=== PATIENT | male | born 1985 | race Caucasian/White ===

== ENCOUNTER 2019-01-04 21:39 | Emergency (ER) | payer BC, MEDICAID, OTHER ==
[~2019-01-04] VITALS: Ht 185.4 cm; Wt 102.0 kg
--- NOTE | 2019-01-04 22:33 | NUR ---
PA to NS to request pt be placed on simple mask at 7. So done.
[2019-01-04] MEDS ORDERED: SUMAtriptan 5 mg Nasal Spray NS ONE (22:35)
[2019-01-04] MEDS ORDERED: SUMAtriptan succ. 6 MG/0.5ml vial SQ ONE (22:40)
[2019-01-04] MEDS ORDERED: proCHLORperazine 10 MG/2 ml inj IV ONE (23:00)
[2019-01-04] MEDS ORDERED: diphenhydrAMINE 50 mg/ml inj IV ONE (23:00)
[2019-01-04] MEDS ORDERED: normal saline 1000ML IV soln IVB ONE (23:00)
--- NOTE | 2019-01-04 23:08 | NUR ---
relieving RN for break, pt is resting quietly in the dark, c/o headache "it is worse" 04/07,
[2019-01-04] MEDS ORDERED: ketorolac tromethamine 15mg/ml inj. IV ONE (23:25)
[2019-01-04 23:48] LABS: URINE AMPHETAMINE SCREEN NEGATIVE (Neg); URINE BARBITUATE SCREEN NEGATIVE (Neg); URINE BENZODIAZEPINES SCREEN NEGATIVE (Neg); URINE CANNABINOID SCREEN NEGATIVE (Neg); URINE COCAINE SCREEN NEGATIVE (Neg); URINE METHADONE SCREEN NEGATIVE (Neg); URINE OPIATE SCREEN NEGATIVE (Neg); URINE PHENCYCLIDINE SCREEN NEGATIVE (Neg)
[2019-01-05 00:42] VITALS: BP 127/63
== END 2019-01-05 00:44 | disposition home or self-care (01) ==
LOC: ER 21:40
DX: G43.909 Migraine, unspecified, not intractable, without status migrainosus (principal)
CPT/HCPCS: 80305; 96372; 96374; 96375; 99283; J0780; J1200; J1885; J7030; J3030

== ENCOUNTER 2024-11-23 12:36 | Emergency (ER) | payer BC ==
[~2024-11-23] VITALS: Ht 185.4 cm; Wt 105.5 kg
[2024-11-23 12:47] VITALS: TEMP 97.2
--- NOTE | 2024-11-23 12:56 | ELECTROCARDIOGRAPH REPORT ---
[facility] Test Date: 2024-11-23 Test Time: 12:55:06 Pat Name: ALEXANDER JO Department: EMERGENCY ROOM Room: Gender: M Field Secretary: CHAPARRO : 1985 Requested By: REGIS PIERSON Order Number: [id number] Reading MD: Dr. Jasper Zambrano Measurements Intervals [place] Rate: 94 P: 65 [place]: 154 QRS: 59 QRSD: 101 T: 23 QT: 358 QTc: 448 Interpretive Statements Sinus rhythm Multiple ventricular premature complexes RSR' in V1 or V2, right VCD or RVH Baseline wander in lead(s) I,II,aVR,V3 Electronically Signed On 11-23-2024 19:01:[address] Jasper Zambrano Please click the below link to view image of tracing.
[2024-11-23 13:12] LABS: BASOPHILS # (AUTO) 0.1 X10'3 (0-0.2); BASOPHILS % (AUTO) 0.6 % (0-1); EOSINOPHILS # (AUTO) 0.1 X10'3 (0-0.9); EOSINOPHILS % (AUTO) 1.5 % (0-6); HEMOGLOBIN 15.6 g/dl (14.0-17.9); LYMPHOCYTES # (AUTO) 1.8 X10'3 (1.1-4.8); LYMPHOCYTES % (AUTO) 23.5 % (21-51); MEAN CORPUSCULAR HEMOGLOBIN 26.5 PG (27.0-31.0); MEAN CORPUSCULAR HGB CONC 33.8 g/dL (33.0-36.5); MEAN CORPUSCULAR VOLUME 78.4 FL (78-98); MEAN PLATELET VOLUME 7.3 FL (7.4-10.4); MONOCYTES # (AUTO) 0.5 X10'3 (0-0.9); NEUTROPHILS # (AUTO) 5.3 X10'3 (1.8-7.7); NEUTROPHILS % (AUTO) 68.4 % (42-75); PLATELET COUNT 242 X10'3 (140-440); RED BLOOD COUNT 5.86 X10'6 (4.70-6.10); RED CELL DISTRIBUTION WIDTH 13.6 % (11.5-14.5); WHITE BLOOD COUNT 7.7 X10'3 (4.5-11.0)
--- NOTE | 2024-11-23 13:18 | RADIOLOGY REPORT ---
CHEST RADIOGRAPH Indication: CP Technique: Single frontal view of the chest was obtained Comparison: None FINDINGS: Lines and Tubes: None Lungs: No focal consolidation. Pleura: No effusion. No pneumothorax. Cardiomediastinal contours: Unremarkable Bones: No acute osseous abnormality. IMPRESSION: No acute cardiopulmonary disease.
[2024-11-23 13:26] LABS: ALANINE AMINOTRANSFERASE 47 U/L (12-78); ALBUMIN 4.5 G/DL (3.4-5.0); ALBUMIN/GLOBULIN RATIO 1.4 (1.1-1.5); ALKALINE PHOSPHATASE 77 IU/L (46-116); ANION GAP 11 (8-16); ASPARTATE AMINO TRANSFERASE 22 U/L (10-37); BILIRUBIN,TOTAL 0.5 MG/DL (0.1-1.0); BLOOD UREA NITROGEN 12 MG/DL (7-18); BUN/CREATININE RATIO 12.6 (10.0-20.0); CALCIUM 9.2 MG/DL (8.5-10.1); CHLORIDE 101 MMOL/L (99-107); CREATININE 0.95 MG/DL (0.60-1.10); GLUCOSE 108 MG/DL (70-104); SODIUM 135 MMOL/L (135-145); TOTAL CARBON DIOXIDE 23.5 MMOL/L (24-32); TOTAL PROTEIN 7.7 G/DL (6.4-8.2); eCRCL 120 ML/MIN; eGFR 89 ML/MIN
[2024-11-23 13:35] LABS: PRO BRAIN NATRIURETIC PEPTIDE < 30 PG/ML (0-125)
[2024-11-23 14:10] VITALS: BP 139/98; PULSE 73; RESP 18; O2SAT 96
--- NOTE | 2024-11-23 14:30 | Physician Documentation ---
History of Present Illness ~ Chief Complaint: Chest Pain Stated Complaint: CP Time Seen by MD: 14:06 Primary Medical Doctor: none Mode of Arrival: POV, Ambulatory HPI 38-year-old male presents to the ED with a history of hypertension and acute onset left-sided chest pain that is nonradiating say that while driving to the ER is some of the pain shot to his back he was you may have a history of anxiety. He was any nausea vomiting headaches denies Shortness of breath with ambulation or active Day of Onset: Nov 23, 2024 Medication Reconciliation Allergies: Coded Allergies: No Known Allergies (Unverified , 11/23/24) Past Medical History Past Medical History: No Pertinent History Past Surgical History: noncontributory Alcohol Use: Occasionally Drug Use: none Lives with: Family Lives In: Home Occupation: employed Review of Systems All Other Systems at this time: Reviewed and Negative ROS As stated above in the HPI, otherwise all systems are reviewed and negative. Physical Exam Vital Signs: Temperature: 97.2, Source: Temporal, Heart Rate: 73, Respiratory Rate: 18, BP: 139/98, Pulse Oximetry: 96, Weight: 105.550 Oxygen Flow Rate: 0 Physical Exam General: Alert, no apparent distress. HEENT: PERRL, EOMI, no injection, moist mucous membranes. Neck: Full range of motion. Respiratory: Lungs clear, no respiratory distress. Chest: No accessory muscle use. Cardiovascular: Regular rate and rhythm, no murmurs. Gastrointestinal: Soft, nontender, nondistended. Bowels sounds present. Progress Results/Orders Results/Orders Orders - REGINALDO PIERSON [employer] Chest,Single View (11/23/24 13:08) Monitor (11/23/24 12:52) Saline Lock (11/23/24 12:52) Oxygen (11/23/24 12:52) Completed Orders - REGINALDO PIERSON [employer] Chest,Single View (11/23/24 13:08) Cbc/Diff (11/23/24 12:52) PBNP (11/23/24 12:52) Electrocardiogram (11/23/24 12:52) CMP (11/23/24 12:52) Hs Troponin I W Calculations (11/23/24 12:52) Vital Signs 4/28/25 4/28/25 4/28/25 4/28/25 12:47 14:01 14:01 14:10 Temp 97.2 Pulse 75 73 Resp 18 18 18 B/P (MAP) 145/96 139/98 (112) Pulse Ox 99 100 96 O2 Delivery Room Air* O2 Flow Rate 0 0 FiO2 N/A Laboratory Tests Test 11/23/24 12:55 White Blood Count 7.7 Red Blood Count 5.86 Hemoglobin 15.6 Hematocrit 46.0 Mean Corpuscular Volume 78.4 Mean Corpuscular Hemoglobin 26.5 L Mean Corpuscular Hemoglobin Concent 33.8 Red Cell Distribution Width 13.6 Platelet Count 242 Mean Platelet Volume 7.3 L Neutrophils (%) (Auto) 68.4 Lymphocytes (%) (Auto) 23.5 Monocytes (%) (Auto) 6.0 Eosinophils (%) (Auto) 1.5 Basophils (%) (Auto) 0.6 Neutrophils # (Auto) 5.3 Lymphocytes # (Auto) 1.8 Monocytes # (Auto) 0.5 Eosinophils # (Auto) 0.1 Basophils # (Auto) 0.1 CBC Comment Sodium Level 135 Potassium Level 4.0 Chloride Level 101 Carbon Dioxide Level 23.5 L Anion Gap 11 Blood Urea Nitrogen 12 Creatinine 0.95 Estimated GFR/1.73 m2 89 BUN/Creatinine Ratio 12.6 Glucose Level 108 H Calcium Level 9.2 Total Bilirubin 0.5 Aspartate Amino Transf (AST/SGOT) 22 Alanine Aminotransferase (ALT/SGPT) 47 Alkaline Phosphatase 77 Troponin I High Sensitivity 4 Pro-B-Type Natriuretic Peptide < 30 Total Protein 7.7 Albumin 4.5 Globulin 3.2 Albumin/Globulin Ratio 1.4 Chemistry Comments Medical Decision Making Findings It is EKG was very reassuring I did make note of some PVCs but normal sinus rhythm no ST elevations no axis deviation This x-ray was reassuring no signs of pulmonary infiltrate or opacities Patient's laboratory results were also reassuring with no concerns that would indicate that he was having a an acute cardiac event. Additionally patient does report that he has a history of anxiety and since he was in the ER he has felt better and no longer x-ray is experiencing any pain discussed with him the effects that anxiety can have on the body. He appeared reassured and verbalized understood Differential Dx:Considerations: Include: angina, aortic dissection, chest wall pain, cholelithiasis, CHF, costochondritis, esophageal reflux/spasm, gastritis, herpes zoster, myocardial infarction, pericarditis, pleuritis, pancreatitis, pneumonia, pneumothorax, pulmonary embolus, other Departure Disposition: HOME / SELF CARE / HOMELESS Impression: Primary Impression: Palpitations Condition: Improved Discharge Instructions: Nonspecific Chest Pain, Adult, Palpitations Referrals: NO PRIMARY CARE PROVIDER (PCP) Signature Scribe Signature: g Attestation: The note accurately reflects work and decisions made by me.Reginaldo Nino NP 11/23/24 16:27 REGINALDO PIERSON NP Nov 23, 2024 14:30
== END 2024-11-23 14:38 | disposition home or self-care (01) ==
LOC: ER 12:36
DX: R00.2 Palpitations (principal); R07.9 Chest pain, unspecified; I10 Essential (primary) hypertension
CPT/HCPCS: 36415; 71045; 80053; 83880; 84484; 85025; 93005; 99285